=== PATIENT | male | born 1990 | race Two or more races ===

== ENCOUNTER 2022-04-07 13:18 | Emergency (ER) | payer OTHER ==
[~2022-04-07] VITALS: Ht 180.3 cm; Wt 81.6 kg
[2022-04-07] MEDS ORDERED: ZOFRAN8 MG PO (19:41)
[2022-04-07] MEDS ORDERED: OSEL75CA PO (19:41)
== END 2022-04-07 19:45 | disposition home or self-care (01) ==
LOC: ER 13:18
DX: J09.X2 Influenza due to identified novel influenza A virus with other respiratory manifestations (principal)